=== PATIENT | female | born 1990 | race American Indian/Alaskan Native ===

== ENCOUNTER 2019-10-10 07:32 | Emergency (ER) | payer SELFPAY ==
[2019-10-10 09:10] VITALS: BP 151/90
[2019-10-10] MEDS ORDERED: KETOROLAC 30 MG/1 ML INJ IM ONE (09:30)
--- NOTE | 2019-10-10 09:46 | Emergency Department Report ---
HPI - General Chief Complaint: Headache Time Seen by Provider: 10/10/19 09:17 - HPI HPI: 29-year-old female presents to the emergency department with a complaint of a four-day history of a intermittent headache. The headache seems to be to the bilateral temporal and parietal region of her head. She has been taking Excedrin and says that every time she takes Excedrin the headache resolves. However she developed another headache this morning around 5 AM that was resistant to the Excedrin. Also, today, the headache is more posterior and also she has some upper neck pain/tension. The neck tension has been causing her to have increased pain and some difficulty rotating her head sideways. She has no difficulty looking up or down. The patient says "people told me it is probably a tension headache." She denies any fever, numbness or paresthesias, vision change, slurred speech or any other neurological deficits. No past medical history. ED Past Medical Hx - Past Medical History Previous Medical History?: No - Surgical History Past Surgical History?: No - Social History Smoking Status: Never Smoker Substance Use Type: None - Medications Home Medications: Home Medications Medication Instructions Recorded Confirmed Last Taken Type Cyclobenzaprine [Flexeril] 10 mg PO TID PRN #12 tablet 10/10/19 Unknown Rx ED Review of Systems ROS: Stated complaint: HEADACHE/NECK PAIN Other details as noted in HPI Comment: All other systems reviewed and negative Constitutional: denies: fever, weakness Eyes: denies: eye pain, vision change Musculoskeletal: myalgia. denies: back pain, joint swelling Neurological: headache. denies: weakness, numbness, paresthesias, confusion, vertigo Physical Exam - Physical Exam Vital Signs: Vital Signs 10/10/19 10/10/19 07:45 09:07 Temperature 97.7 F 98.8 F Pulse Rate 81 86 Respiratory 18 20 Rate Blood Pressure 124/82 151/90 O2 Sat by Pulse 97 100 Oximetry Physical Exam: GENERAL: The patient is well-developed well-nourished. HEENT: Normocephalic. Atraumatic. Patient has moist mucous membranes. EYES: Extraocular motions are intact. Pupils equal and reactive to light bilaterally. No nystagmus. NECK: Supple. Trachea is midline. No midline tenderness to palpation. There is some right-sided paraspinal and trapezius tenderness to palpation with some tight musculature. SKIN:Skin is warm and dry. . NEURO: The patient is awake, alert, and oriented. The patient is cooperative. The patient has no focal neurologic deficits. Normal speech. Cranial nerves II through XII grossly intact. No facial asymmetry. MUSCULOSKELETAL: There is no tenderness or deformity. There is no limitation range of motion. There is no evidence of acute injury. ED Course Vital Signs 10/10/19 10/10/19 07:45 09:07 Temperature 97.7 F 98.8 F Pulse Rate 81 86 Respiratory 18 20 Rate Blood Pressure 124/82 151/90 O2 Sat by Pulse 97 100 Oximetry ED Medical Decision Making - Medical Decision Making The patient has presented with some intermittent headaches over the past 4 days. Usually it is responsive to Excedrin but it was not this morning. On examination she does not have any focal, motor or sensory deficits and her cranial nerves are intact. She has some mild restriction to left-sided head rotation but there is no rigidity of the neck and she has no difficulty looking up or down. There is some reproducible tight neck musculature that I believe is causing or adding to her headache. At the time of my examination the intensity of the headache was greatly decreased from her initial presentation. Patient was given a shot of Toradol here and will be discharged home with a prescription for some Flexeril to help with what appears to be a tension headache. However, we discussed return to the emergency department immediately with any worsening of her symptoms including any development of fever, neck rigidity, numbness or paresthesias or any neurological deficits. Patient understands and agrees to the plan. - Differential Diagnosis tension headache, cluster headache, migraine Critical Care Time: No Critical care attestation.: If time is entered above; I have spent that time in minutes in the direct care of this critically ill patient, excluding procedure time. ED Disposition Clinical Impression: Headache Qualifiers: Headache type: tension-type Headache chronicity pattern: episodic headache Intractability: not intractable Qualified Code(s): G44.219 - Episodic tension- type headache, not intractable Disposition: DC-01 TO HOME OR SELFCARE Is pt being admited?: No Condition: Stable Instructions: Tension Headache (ED), Acute Headache (ED) Additional Instructions: Please follow up with a primary care physician in the next few days. Return to the emergency Department with any worsening of your symptoms, including any development of fever, rigidity of the neck where it is difficult to look up and down, development of any numbness or weakness, or with any acute distress. You have been prescribed a medication that can be sedating. Therefore, this medication cannot be taken prior to driving, working, being responsible for children, and cannot be mixed with alcohol of any quantity. Prescriptions: Cyclobenzaprine [Flexeril] 10 mg PO TID PRN #12 tablet PRN Reason: Muscle Spasm Referrals: BLAKE DUKE MD [Staff Physician] - 2-3 Days [facility] [Outside] - 2-3 Days Time of Disposition: 09:54
== END 2019-10-10 10:06 | disposition home or self-care (01) ==
LOC: ED 07:32
DX: R51 Headache (principal); M54.2 Cervicalgia; Z79.899 Other long term (current) drug therapy
CPT/HCPCS: 96372; 99282; J1885

== ENCOUNTER 2019-10-17 04:14 | Emergency (ER) | payer SELFPAY ==
[2019-10-17 04:22] VITALS: BP 118/81
[2019-10-17] MEDS: diphenhydrAMINE 50 MG/ML VIAL IV ONE (05:20)
[2019-10-17] MEDS: SODIUM CHLORIDE 0.9% 1000 ML 1,000 ML IV ONE (05:21)
[2019-10-17] MEDS: KETOROLAC 30 MG/1 ML INJ IV ONE (05:21)
[2019-10-17] MEDS: METOCLOPRAMIDE 10 MG/2 ML INJ IV ONE (05:21)
[2019-10-17 05:35] LABS: Basophils # (Auto) 0.1 K/mm3 (0.0-0.1); Basophils % (Auto) 0.7 % (0.0-1.8); Eosinophils % (Auto) 0.6 % (0.0-4.3); Hematocrit 38.7 % (30.3-42.9); Hemoglobin 12.3 gm/dl (10.1-14.3); Lymphocytes # (Auto) 2.2 K/mm3 (1.2-5.4); Lymphocytes % (Auto) 24.8 % (13.4-35.0); Mean Corpuscular HGB Conc 32 % (30-34); Mean Corpuscular Volume 86 fl (79-97); Monocytes # (Auto) 0.7 K/mm3 (0.0-0.8); Monocytes % (Auto) 7.8 % (0.0-7.3); Platelet Count 298 K/mm3 (140-440); Red Blood Count 4.48 M/mm3 (3.65-5.03); Red Cell Distribution Width 13.6 % (13.2-15.2)
--- NOTE | 2019-10-17 05:46 | Emergency Department Report ---
ED Headache HPI - General Chief Complaint: Headache Stated Complaint: SEVERE HEADACHE Source: patient Exam Limitations: no limitations - History of Present Illness Initial Comments: Patient is a 29-year-old female who presents to the ED with persistent worsening bitemporal severe headache with photophobia and intermittent nausea and vomiting for the last 1 week. Patient was initially evaluated in this ED and discharged home on medications stating that the pain was mildly controlled. Patient states that in the course of the last 1 week she has had multiple emergency department visits in various hospitals including [facility] and has had negative head CT scans without contrast, also was evaluated extensively by the neurologist at [place] during her last visit 4 days ago and all tests were unremarkable. Patient states that she has been taking various medications for headache with no relief. Patient denies dizziness, syncope, chest pain, shortness of breath, fever, chills, lightheadedness, change in vision, neck pain, sore throat, nasal and sinus congestion, traumatic injury or seizures. Patient states that in the last 12 hours she has not been able to sleep because of severe headache. Timing/Duration: 1 week Quality: severe, constant, pressure, sharp, throbbing Head Injury Location: temporal (bilateral) Recent Head Trauma: no recent headache/trauma Modifying Factors: improves with: medication Associated Symptoms: denies symptoms, nausea/vomiting. denies: confusion, fatigue, facial pain, fever/chills, flushing, loss of consciousness, nasal congestion, nasal drainage, numbness in legs/feet, seizures, sinus infection, stiff neck, vision changes, weakness Allergies/Adverse Reactions: Allergies No Known Allergies Allergy (Unverified 10/10/19 07:44) Home Medications: Ambulatory Orders Cyclobenzaprine [Flexeril] 10 mg PO TID PRN #12 tablet 10/10/19 Butalb/Acetamin/Caff 50-325-40 [Fioricet 50-325-40] 1 tab PO Q6HR PRN #12 tab 10/17/19 Ketorolac [Toradol] 10 mg PO Q8H PRN #20 tablet 10/17/19 Promethazine [Phenergan] 25 mg PO Q6HR PRN #24 tab 10/17/19 tiZANidine [Zanaflex 4mg TAB] 4 mg PO Q8H PRN #21 tablet 10/17/19 ED Review of Systems ROS: Stated complaint: SEVERE HEADACHE Other details as noted in HPI Constitutional: denies: chills, fever Eyes: denies: eye pain, eye discharge, vision change ENT: denies: ear pain, throat pain, congestion Respiratory: denies: cough, shortness of breath, wheezing Cardiovascular: denies: chest pain, palpitations Endocrine: no symptoms reported Gastrointestinal: nausea, vomiting. denies: abdominal pain, diarrhea Genitourinary: denies: urgency, dysuria, discharge Musculoskeletal: denies: back pain, joint swelling, arthralgia Skin: denies: rash, lesions Neurological: headache. denies: weakness, paresthesias Psychiatric: denies: anxiety, depression Hematological/Lymphatic: denies: easy bleeding, easy bruising ED Past Medical Hx - Past Medical History Previous Medical History?: No - Surgical History Past Surgical History?: No - Social History Smoking Status: Never Smoker Substance Use Type: None - Medications Home Medications: Home Medications Medication Instructions Recorded Confirmed Last Taken Type Cyclobenzaprine [Flexeril] 10 mg PO TID PRN #12 tablet 10/10/19 Unknown Rx Butalb/Acetamin/Caff 50-325-40 1 tab PO Q6HR PRN #12 tab 10/17/19 Unknown Rx [Fioricet 50-325-40] Ketorolac [Toradol] 10 mg PO Q8H PRN #20 tablet 10/17/19 Unknown Rx Promethazine [Phenergan] 25 mg PO Q6HR PRN #24 tab 10/17/19 Unknown Rx tiZANidine [Zanaflex 4mg TAB] 4 mg PO Q8H PRN #21 tablet 10/17/19 Unknown Rx ED Physical Exam - General Limitations: No Limitations General appearance: alert, in no apparent distress - Head Head exam: Present: atraumatic, normocephalic, normal inspection - Eye Eye exam: Present: normal appearance, PERRL, EOMI Pupils: Present: normal accommodation - ENT ENT exam: Present: normal exam, normal orophraynx, mucous membranes moist, TM's normal bilaterally, normal external ear exam - Neck Neck exam: Present: normal inspection, full ROM - Respiratory Respiratory exam: Present: normal lung sounds bilaterally. Absent: respiratory distress, wheezes, rhonchi, chest wall tenderness, accessory muscle use, decreased breath sounds, prolonged expiratory - Cardiovascular Cardiovascular Exam: Present: regular rate, normal rhythm, normal heart sounds. Absent: systolic murmur, diastolic murmur, rubs, gallop - GI/Abdominal GI/Abdominal exam: Present: soft, normal bowel sounds. Absent: tenderness, guar ding, hyperactive bowel sounds, hypoactive bowel sounds - Extremities Exam Extremities exam: Present: normal inspection, full ROM, normal capillary refill - Back Exam Back exam: Present: normal inspection, full ROM. Absent: tenderness, CVA tenderness (R), CVA tenderness (L), muscle spasm, paraspinal tenderness, vertebral tenderness - Neurological Exam Neurological exam: Present: alert, oriented X3, CN II-XII intact, normal gait, reflexes normal - Psychiatric Psychiatric exam: Present: normal affect, normal mood - Skin Skin exam: Present: warm, dry, intact, normal color. Absent: rash ED Course Vital Signs 10/17/19 04:19 Temperature 98.3 F Pulse Rate 61 Respiratory 20 Rate Blood Pressure 118/81 O2 Sat by Pulse 100 Oximetry ED Medical Decision Making - Lab Data Result diagrams: 10/17/19 05:14 10/17/19 05:14 - Medical Decision Making This is a 29-year-old female who presents to the ED with persistent worsening bitemporal severe headache with photophobia and intermittent nausea and vomiting for the last 1 week. Patient was initially evaluated in this ED and discharged home on medications stating that the pain was mildly controlled. Patient states that in the course of the last 1 week she has had multiple emergency department visits in various hospitals including [facility] and has had negative head CT scans without contrast, also was evaluated extensively by the neurologist at [place] during her last visit 4 days ago and all tests were unremarkable. Patient states that she has been taking various medications for headache with no relief. In the ED, patient is alert and oriented x3 and is not in any distress with normal vital signs but appears to be uncomfortably in pain. Lab test results were reviewed and are all nonactionable. Patient was treated for pain and headache with Benadryl, normal saline 1 L IV bolus, Reglan, and Toradol. On reevaluation, patient's headache resolved with medications. Patient felt better and was discharged home on medications and advised to follow-up with her primary care physician in 5 to 7 days for reevaluation or return to the ED immediately if symptoms get worse. - Differential Diagnosis migraine headache; cluster headache; Sinues headache Critical care attestation.: If time is entered above; I have spent that time in minutes in the direct care of this critically ill patient, excluding procedure time. ED Disposition Clinical Impression: Migraine headache without aura Qualifiers: Status migrainosus presence: without status migrainosus Intractability: intractable Qualified Code(s): G43.019 - Migraine without aura, intractable, without status migrainosus Disposition: TO HOME OR SELFCARE Is pt being admited?: No Does the pt Need Aspirin: No Condition: Stable Instructions: Migraine Headache (ED) Additional Instructions: Your symptoms are likely due to a migraine headache without aura, and lab test results during this visit were unremarkable. Therefore take medications in combination as advised with food, drink plenty of fluids and follow-up with your primary care physician in 5 to 7 days for reevaluation. Return to the ED im mediately if symptoms get worse. Prescriptions: Butalb/Acetamin/Caff 50-325-40 [Fioricet 50-325-40] 1 tab PO Q6HR PRN #12 tab PRN Reason: Headache Promethazine [Phenergan] 25 mg PO Q6HR PRN #24 tab PRN Reason: Nausea Ketorolac [Toradol] 10 mg PO Q8H PRN #20 tablet PRN Reason: Pain tiZANidine [Zanaflex 4mg TAB] 4 mg PO Q8H PRN #21 tablet PRN Reason: Muscle Spasm Referrals: BLAKE DUKE MD [Staff Physician] - 3-5 Days Time of Disposition: 06:21 Print Language: TURKISH
[2019-10-17 05:59] LABS: Alanine Aminotransferase 7 units/L (7-56); Albumin 4.4 g/dL (3.9-5); BUN/Creatinine Ratio 17; Blood Urea Nitrogen 10 mg/dL (7-17); Calcium 9.6 mg/dL (8.4-10.2); Hemolysis Index 8
== END 2019-10-17 06:58 | disposition home or self-care (01) ==
LOC: ED 04:14
DX: G43.009 Migraine without aura, not intractable, without status migrainosus (principal); R11.2 Nausea with vomiting, unspecified; Z79.899 Other long term (current) drug therapy
CPT/HCPCS: 36415; 80053; 85025; 96361; 96374; 96375; 99283; J1200; J1885; J2765; J7030